=== PATIENT | female | born 1955 ===

== ENCOUNTER 2016-07-25 15:36 | Outpatient (CLI) | payer BC, OTHER ==
[2016-07-25 15:59] LABS: Bilirubin Negative (Negative); Blood, Urine Trace (Negative); Glucose, Urine (Dipstick) Negative (Negative); Leukocyte Moderate (Negative); Nitrite Negative (Negative); Protein, Urine (Dipstick) Negative (Neg-Trace); Urobilinogen 0.2 mg/dL (0.2-1.0); pH, Urine 5.5 (5.0-9.0)
[2016-07-25 16:00] LABS: Clarity Hazy (Clear)
[2016-07-25 16:02] LABS: Bacteria/HPF Rare-Few HPF (None Seen); RBC/HPF 0-3 HPF (0-3)
== END 2016-07-25 15:37 | disposition home or self-care (01) ==
LOC: MADLABBHPM 15:36
PROVIDERS: ATTEND Family Medicine
DX: N39.0 Urinary tract infection, site not specified (principal)
CPT/HCPCS: 81001; 87086